=== PATIENT | female | born 1980 | race Asian ===

== ENCOUNTER → 2024-08-18 13:17 | Outpatient (REF) | payer OTHER, SELFPAY | LOC: RCS 13:17 | PROVIDERS: ATTENDING PHYSICIAN Internal Medicine Rheumatology; FAMILY PHYSICIAN Family Medicine | DX: R00.2 Palpitations (principal) | CPT/HCPCS: 93005 ==

== ENCOUNTER 2024-10-31 09:38 | Emergency (ER) | payer OTHER, SELFPAY ==
[2024-10-31 09:48] VITALS: BP 123/83
[2024-10-31 10:20] LABS: % Basophils 0.5 % (0-2); % Eosinophils 0.9 % (0-6); % Immature Granulocytes 0.2 % (0-0.5); % Lymphocytes 42.5 % (20.5-51.1); % Monocytes 6.7 % (1.7-9.3); % Neutrophils 49.2 % (42.2-75.2); Absolute Eosinophils 0.1 10^3/uL (0-0.7); Absolute Lymphocytes 2.5 10^3/uL (1.2-3.4); Absolute Monocytes 0.4 10^3/uL (0.1-0.6); Absolute Neutrophils 2.9 10^3/uL (1.4-6.5); Hematocrit 39.1 % (37.0-47.0); Hemoglobin 13.3 g/dL (12.0-16.0); Mean Platelet Volume 10.3 fL (7.4-10.4); Nucleated Red Blood Cells % 0 %; Platelet Count 279 10^3/uL (130-400); Red Blood Cell Count 4.16 10^6/uL (4.20-5.40); Red Cell Dist. Width 12.2 % (11.5-14.5); White Blood Cell Count 5.8 10^3/uL (4.8-10.8)
[2024-10-31 10:37] LABS: ALT (SGPT) 16 U/L (0-35); AST (SGOT) 33 U/L (14-36); Alkaline Phosphatase 61 U/L (38-126); Blood Urea Nitrogen 15 mg/dl (7-17); Carbon Dioxide 22 mmol/L (22-30); Chloride 106 mmol/L (98-107); Glucose 107 mg/dl (70-99); Potassium 4.2 mmol/L (3.5-5.1); Sodium 137 mmol/L (135-145); Total Bilirubin 1.2 mg/dl (0.2-1.3); Total Protein 6.6 g/dl (6.3-8.2); eGFR > 60.00
[2024-10-31 10:59] LABS: HCG, Serum Qualitative Screen Negative
[2024-10-31] MEDS: ANTIVERT 25 MG PO (11:42)
--- NOTE | 2024-10-31 11:50 | ED.GENMED ---
History of Present Illness
General
Chief Complaint: Dizziness
Source: patient
Exam Limitations: none
Time Seen by Provider: 10/31/24 11:33
History of Present Illness
History of Present Illness:
See MDM
Past History
Past History
ED Past Medical History: Other (Rheumatoid arthritis)
ED Past Surgical History: None
Social History
Tobacco: Smoker
Alcohol: Occasional
Family History
Family History: Negative Diabetes, Hypertension or CAD
Phy Exam
Physical Exam
Physical Exam:
See MDM
Course
Orders/Labs/Results
Orders:
Orders
10/31/24 09:51
Electrocardiogram (*1) Urgent
Reason for Study: Syncope
EKG- Treatment ONCE
Test Result ONCE
10/31/24 10:07
Complete Blood Count/With Diff Urgent
Comprehensive Metabolic Panel Urgent
HCG, Serum Qualitative Screen Urgent
10/31/24 11:36
Meclizine [Antivert] 25 mg .ROUTE .STK-MED ONE
10/31/24 11:39
EKG- Treatment ONCE
10/31/24 11:42
Meclizine [Antivert] 25 mg PO NOW STA
Abnormal Lab Results
10/31/24
10:07
RBC 4.16 L 10^6/uL
(4.20-5.40)
MCH 32.0 H pg
(27.0-31.0)
Glucose 107 H mg/dl
(70-99)
10/31/24 10:07
10/31/24 10:07
Vital Signs
Initial and Last Documented VS:
Initial Vital Signs
Temp Pulse Resp BP Pulse Ox
98.4 F 73 18 123/83 100
10/31/24 09:48 10/31/24 09:48 10/31/24 09:48 10/31/24 09:48 10/31/24 09:48
Last Documented Vital Signs
Temp Pulse Resp BP Pulse Ox
98.4 F 62 18 102/68 100
10/31/24 12:00 10/31/24 12:00 10/31/24 12:00 10/31/24 12:00 10/31/24 12:00
MDM/Problems Addressed
Differential Diagnosis Includes:
HPI and MDM Narrative:
43-year-old female presenting for evaluation of dizziness and near syncope. She had an episode recently went to an outside hospital where she had blood work and EKG. Patient was told to go back to the emergency department if symptoms persisted.
Patient states she felt dizziness again while doing her make-up today. She felt like she was going to pass out. Today was mildly different because she felt the room spinning. On arrival, patient is somewhat improved. On exam, she is
well-appearing nontoxic. Heart regular rate and rhythm. EKG performed and in within normal limits. Blood work performed and there is no clinically significant abnormalities. She has normal [id number] but she does have mild left nystagmus.
It is horizontal nystagmus and fatigable. She does have a mildly positive [place]-Hallpike. TMs are clear. Will give dose of meclizine and continue to reassess
Physical exam
General: Well appearing and non-toxic
HEENT: protecting airway. TMs clear. Mild bilateral left lateral horizontal nystagmus
Neck: appears supple
CV: No evidence of cyanosis. Regular and rhythm
Resp: No accessory muscle use
Abd: Non-distended
Extremities: No deformities
Neuro: alert. Normal finger-nose
Psych: Normal affect
Skin: Intact
Problems Addressed including Acute and Chronic Conditions affecting care:
1. Vertigo
Acuity: acute
Prognosis: stable
Details: Likely BPPV. Will give dose of meclizine and continue to reassess. Given no focal neurodeficits and normal finger-nose, we discussed low utility in CT scan. We discussed follow-up with ENT and outpatient MRI if symptoms persist
Updates
On reassessment after meclizine, patient feeling much better. Nystagmus has resolved. Discussed follow-up with ENT and meclizine as needed. Discussed outpatient MRI if symptoms persist. Given the near syncopal event, discussed Holter monitor
with PCP
Differential Diagnosis (but not limited to): Vertigo, dehydration, dizziness
Testing considered: CT head but she has no focal deficits and no cerebellar signs
Drug therapy (if applicable): OTC meds, please see d/c instruction regarding Rx drugs
Amount and/or Complexity of Data Reviewed
Clinical info obtained from: Patient
External data reviewed: N/A
Labs I independently reviewed (but not limited to): White blood cell count normal
Radiology: N/A
Pulse Ox: not hypoxic
EKG independently reviewed: Sinus rhythm, normal axis, no STEMI
Readiness Paraprofessional: N/A
Critical Care: N/A
Risk of Complication:
Social Determinants of health: Good social support
Discussed with other providers: N/A
Escalation of Care includes Admit/Obs: After being observed in the Emergency Department, pt stable for discharge.
Occasional wrong word or 'sound a like' substitutions may have occurred due to the inherent limitations of voice recognition software. Read the chart carefully and recognize, using context, where substitutions have occurred.
*Critical Care Note
Total Time (30-74mins, 75-104mins- exclusive of procedures): Not Applicable
ED Attending Note
-
Portions of this chart may have been created with voice recognition software.� Occasional wrong word or��sound alike� substitutions may have occurred due to the inherent limitations of voice recognition software.
Discharge Plan
Departure
Patient Disposition: Home (Routine Discharge)
Date of Disposition: 10/31/24
Time of Disposition: 13:36
Patient with high blood pressure during this ER visit?: No
Discharge Problem:
Benign paroxysmal positional vertigo
Instructions: Vertigo (a Type of Dizziness) (DC)
Prescriptions:
New
meclizine [Antivert] 25 mg Tablet,Chewable
25 mg PO BIDPRN PRN (Reason: nausea or vertigo) Qty: 20 0RF
No Action
No Meds [No Current Medications]
meclizine 25 MG tablet
25 mg PO Q8HPRN PRN (Reason: nausea or vertigo) Qty: 30 0RF
Referrals:
Rhonda Rudd DO [Family Provider] -
Jhonny Connelly MD [Active] -
Activity Restrictions/Additional Instructions:
Please return for any worsening symptoms.
You may return at any time if you have further concerns.
If symptoms persist, please follow-up with the ENT. At that point, they may recommend physical therapy for your ear called vestibular therapy or they might recommend MRI.
Please follow up with your doctor at the first available appointment, preferably this week. Given the palpitations and the near passing out episodes, you would benefit from a Holter monitor.
Thank you for choosing [facility].
Interventions
Interventions:
*Risk Screen - Suicide Last Done: 10/31/24 09:48
*General Assessment Last Done: 10/31/24 09:48
*Neglect/Abuse Screening Last Done: 10/31/24 09:48
*ED COVID-19 Vaccine History Last Done: 10/31/24 11:39
ED- Neurological Assessment Last Done: 10/31/24 11:39
Discharge Date and Time
Print Language: ETHIOPIAN
[2024-10-31 12:00] VITALS: BP 102/68
== END 2024-10-31 13:49 | disposition home or self-care (01) ==
LOC: EMR 09:38
PROVIDERS: Emergency Medicine; EMERGENCY PHYSICIAN Student in an Organized Health Care Education/Training Program; FAMILY PHYSICIAN Family Medicine
DX: H81.10 Benign paroxysmal vertigo, unspecified ear (principal); M06.9 Rheumatoid arthritis, unspecified; F17.200 Nicotine dependence, unspecified, uncomplicated
CPT/HCPCS: 99283; 80053; 84703; 85025; 93005

== ENCOUNTER 2024-12-23 16:40 | Emergency (ER) | payer OTHER, SELFPAY ==
[2024-12-23 16:46] VITALS: BP 113/77
[2024-12-23 17:14] VITALS: BMI 25.9
[2024-12-23 17:26] VITALS: BP 111/70
[2024-12-23 17:52] LABS: % Basophils 0.5 % (0-2); % Eosinophils 0.7 % (0-6); % Immature Granulocytes 0.2 % (0-0.5); % Lymphocytes 35.4 % (20.5-51.1); % Monocytes 6.9 % (1.7-9.3); % Neutrophils 56.3 % (42.2-75.2); Absolute Monocytes 0.4 10^3/uL (0.1-0.6); Absolute Neutrophils 3.2 10^3/uL (1.4-6.5); Hematocrit 41.1 % (37.0-47.0); Hemoglobin 14.1 g/dL (12.0-16.0); Mean Corp Hgb Conc. 34.3 g/dL (33.0-37.0); Mean Corpuscular Hgb 31.9 pg (27.0-31.0); Mean Platelet Volume 10.5 fL (7.4-10.4); Nucleated Red Blood Cells % 0 %; Platelet Count 283 10^3/uL (130-400); Red Blood Cell Count 4.42 10^6/uL (4.20-5.40); Red Cell Dist. Width 12.4 % (11.5-14.5); White Blood Cell Count 5.8 10^3/uL (4.8-10.8)
[2024-12-23 17:59] LABS: HCG, Serum Qualitative Screen Negative
[2024-12-23 18:00] VITALS: BP 99/60
[2024-12-23 18:04] LABS: ALT (SGPT) 22 U/L (0-35); AST (SGOT) 32 U/L (14-36); Albumin 4.8 g/dl (3.5-5.0); Alkaline Phosphatase 70 U/L (38-126); Blood Urea Nitrogen 19 mg/dl (7-17); Calcium 9.6 mg/dl (8.4-10.2); Carbon Dioxide 22 mmol/L (22-30); Chloride 104 mmol/L (98-107); Estimated Creatinine Clearance 87 ml/min; Glucose 101 mg/dl (70-99); Potassium 3.8 mmol/L (3.5-5.1); Sodium 137 mmol/L (135-145); Total Bilirubin 0.6 mg/dl (0.2-1.3); Total Protein 7.3 g/dl (6.3-8.2); eGFR > 60.00
[2024-12-23 18:10] LABS: Troponin I < 0.012 ng/ml
--- NOTE | 2024-12-23 18:27 | ED.GENMED ---
History of Present Illness
General
Chief Complaint: Fainting Sensation
Source: patient
Time Seen by Provider: 12/23/24 17:24
History of Present Illness
History of Present Illness:
44-year-old female presents to the emergency room complaining of having intermittent sensation that she is going to pass out. Patient states it is not a dizzy feeling or lightheaded but just a feeling that she cannot describe other than saying it
feels like she is going to pass out. She denies any chest pain, shortness of breath, nausea, vomiting or diarrhea. Patient does get palpitations from time to time but she does not feel like she is having palpitations associated with these events.
She does not feel like she has difficulty ambulating. She denies any focal weakness. When the events occur they typically last just a second or 2. She came today because the episode lasted longer than normal. She came in in a wheelchair because
she felt like she just could not walk. The sensation has passed and she is not having it at the time of my evaluation.
Past History
Past History
ED Past Medical History: Other (Rheumatoid arthritis)
ED Past Surgical History: None
Social History
Tobacco: Smoker
Alcohol: Occasional
Family History
Family History: Negative Diabetes, Hypertension or CAD
Phy Exam
Physical Exam
Physical Exam:
General: Awake, Alert, Oriented X3. No acute distress.
Vitals: unremarkable
Head: Atraumatic
Eyes: Pupils equal, EOMI
Throat: Airway intact, no exudates
Neck: Trachea midline
Lungs: Clear and equal b/l
Heart: Regular rate, no murmurs
Abd: Soft, Nontender, No pulsatile mass
Neuro: Cranial nerves intact, muscle strength equal bilaterally, cerebellar exam normal
Skin: Warm, dry, no rash
Extremities: pulses equal b/l, no edema
Course
Orders/Labs/Results
Orders:
Orders
12/23/24 16:42
EKG [Electrocardiogram (*1)] Urgent
Reason for Study: Syncope
EKG- Treatment ONCE
12/23/24 17:28
Test Result ONCE
12/23/24 17:29
CMP [Comprehensive Metabolic Panel] Urgent
Complete Blood Count/With Diff Urgent
, Serum Qualitative Screen [HCG, Serum Qualitative Screen] Urgent
Troponin I Urgent
12/23/24 18:25
CT Head W/o Iv Contrast Urgent
Comment:
Reason For Exam: dizziness
0.9% Sodium Chloride 1000 ml [Nss] 1,000 ml IV BOLUS
Abnormal Lab Results
12/23/24
17:29
MCH 31.9 H pg
(27.0-31.0)
MPV 10.5 H fL
(7.4-10.4)
BUN 19 H mg/dl
(7-17)
Glucose 101 H mg/dl
(70-99)
12/23/24 17:29
12/23/24 17:29
Vital Signs
Initial and Last Documented VS:
Initial Vital Signs
Temp Pulse Resp BP Pulse Ox
99.4 F 82 18 113/77 100
12/23/24 16:46 12/23/24 16:46 12/23/24 16:46 12/23/24 16:46 12/23/24 16:46
Last Documented Vital Signs
Temp Pulse Resp BP Pulse Ox
99.4 F 66 12 99/70 100
12/23/24 16:46 12/23/24 21:19 12/23/24 21:19 12/23/24 21:18 12/23/24 19:30
MDM/Problems Addressed
Differential Diagnosis Includes:
Dysrhythmia, vertigo, vasovagal episode
MDM/Problems Addressed:
Patient presents with a sensation that she might pass out. She is in normal sinus rhythm on her EKG and while on the monitor. Vital signs are normal. CT of the head shows no acute abnormalities. Labs are all reassuring. She wishes patient
symptoms is unclear however she does not appear to have a condition which would require hospitalization. Patient stable for discharge recommend follow-up with cardiology. Also felt with a primary care provider. Patient was seen here for some
similar and thought to be vertigo. However she denies any sense of movement or room spinning at this time.
*Critical Care Note
Total Time (30-74mins, 75-104mins- exclusive of procedures): Not Applicable
ED Attending Note
-
Portions of this chart may have been created with voice recognition software.� Occasional wrong word or��sound alike� substitutions may have occurred due to the inherent limitations of voice recognition software.
Discharge Plan
Departure
Patient Disposition: Home (Routine Discharge)
Date of Disposition: 12/23/24
Time of Disposition: 21:04
Patient with high blood pressure during this ER visit?: No
Condition: Good
Discharge Problem:
Near syncope
Instructions: Near Fainting (DC)
Prescriptions:
No Action
No Meds [No Current Medications]
meclizine 25 MG tablet
25 mg PO Q8HPRN PRN (Reason: nausea or vertigo) Qty: 30 0RF
meclizine [Antivert] 25 mg Tablet,Chewable
25 mg PO BIDPRN PRN (Reason: nausea or vertigo) Qty: 20 0RF
Referrals:
Elmo Sousa MD [Active] -
Rhonda Rudd DO [Family Provider] -
Activity Restrictions/Additional Instructions:
Blood work and CAT scan performed here in the emergency room are essentially normal. Your EKG here also is normal. The reasons for your symptoms is not clear but we have not found an unstable process necessitating hospitalization. I believe you
should follow-up with both your family doctor and cardiology. I have given you contact information for one of our forest economics professor.
Interventions
Interventions:
*Risk Screen - Suicide Last Done: 12/23/24 16:46
*General Assessment Last Done: 12/23/24 17:14
*Neglect/Abuse Screening Last Done: 12/23/24 16:46
*ED- Fall Risk Assessment Last Done: 12/23/24 17:14
*ED COVID-19 Vaccine History Last Done: 12/23/24 16:46
*Nursing Disposition Last Done: 12/23/24 21:39
ED- Cardiac Assessment Last Done: 12/23/24 17:14
ED- Neurological Assessment Last Done: 12/23/24 17:14
Discharge Date and Time
Discharge Date/Time: 12/23/24 21:39
Print Language: FAROESE
[2024-12-23] MEDS: NSS 1000 IV (18:32)
[2024-12-23 19:00] VITALS: BP 99/57
[2024-12-23 21:18] VITALS: BP 99/70
== END 2024-12-23 21:39 | disposition home or self-care (01) ==
LOC: EMR 16:40
PROVIDERS: EMERGENCY PHYSICIAN Emergency Medicine; FAMILY PHYSICIAN Family Medicine
DX: R55 Syncope and collapse (principal); M06.9 Rheumatoid arthritis, unspecified; F17.200 Nicotine dependence, unspecified, uncomplicated
CPT/HCPCS: 99284; 96360; 70450; 80053; 84484; 84703; 85025; 93005

== ENCOUNTER → 2025-01-29 07:10 | Outpatient (REF) | payer OTHER, SELFPAY | LOC: RCS 07:10 | PROVIDERS: ATTENDING PHYSICIAN Internal Medicine Cardiovascular Disease; FAMILY PHYSICIAN Family Medicine | DX: R55 Syncope and collapse (principal); R00.2 Palpitations | CPT/HCPCS: 93306 ==